=== PATIENT | female | born 1955 | race African-American/Black ===

== ENCOUNTER 2025-03-28 22:26 | Observation (INO) | payer MEDICARE, OTHER ==
[~2025-03-28] VITALS: Ht 177.8 cm; Wt 133.4 kg
[2025-03-28 22:48] VITALS: TEMP 98.9
[2025-03-28 23:06] LABS: BASOPHILS % 0.3 % (0.0-1.0); EOSINOPHILS % 2.1 % (0.0-6.0); LYMPHOCYTES % 32.4 % (18.0-39.1); MONOCYTES % 7.7 % (4.4-11.3); NEUTROPHILS % 57.2 % (38.7-80.0); RED CELL DISTRIBUTION WIDTH 13.9 % (11.7-14.4)
[2025-03-28 23:15] VITALS: RESP 22
[2025-03-28 23:24] LABS: EST GLOMERULAR FILTRATION RATE 92.0 ML/MIN (>=60)
[2025-03-28 23:37] LABS: CORONAVIRUS COVID-19 AG NEGATIVE (NEGATIVE)
[2025-03-28 23:45] VITALS: PULSE 84
[2025-03-29] VITALS (9 sets, daily range): BP systolic 123–150; BP diastolic 80–107; PULSE 61–71; RESP 16–20; TEMP 97.4–98.1; O2SAT 98–100
[2025-03-29] MEDS ORDERED: SODIUM CHLORIDE 0.9% 1000ML 1,000 ML IV SCH (01:00)
[2025-03-29] MEDS: SODIUM CHLORIDE 0.9% 1000ML 1,000 ML IV SCH (02:12)
[2025-03-29] MEDS ORDERED: METOPROLOL TART25 MG PO (02:44)
[2025-03-29] MEDS ORDERED: ATORVASTATIN CA20 MG PO (02:44)
[2025-03-29] MEDS ORDERED: ASPIRIN81 MG PO (02:44)
[2025-03-29] MEDS ORDERED: FUROSEMIDE40 MG PO (02:44)
[2025-03-29] MEDS ORDERED: LOSARTAN POTASS25 MG PO (02:44)
[2025-03-29] MEDS ORDERED: CLOPIDOGREL BISULFATE 75 MG TAB ONE ×2 (12:58→12:59)
[2025-03-29] MEDS ORDERED: DEXTROSE 50% SYRINGE 50 ML IV PRN (13:00)
[2025-03-29] MEDS ORDERED: ALBUTEROL/IPRATROPIUM 3 ML NEB NEB PRN (13:00)
[2025-03-29] MEDS ORDERED: ONDANSETRON HCL INJ 2MG/ML 2ML 2 MG/ML VIAL IV PRN (13:00)
[2025-03-29] MEDS ORDERED: DOCUSATE SODIUM 100 MG CAP PO PRN (13:00)
[2025-03-29] MEDS ORDERED: MELATONIN 5 MG TABLET PO PRN (13:00)
[2025-03-29] MEDS ORDERED: BENZONATATE 100 MG CAP PO PRN (13:00)
[2025-03-29] MEDS ORDERED: HYDRALAZINE HCL 20 MG/ML VIAL IV PRN (13:00)
[2025-03-29] MEDS ORDERED: DIPHENHYDRAMINE HCL 25 MG CAP PO PRN (13:00)
[2025-03-29] MEDS ORDERED: POTASSIUM CHLORIDE 20 MEQ TAB CR PO PRN (13:00)
[2025-03-29] MEDS ORDERED: LIDOCAINE 4% PATCH TP PRN (13:00)
[2025-03-29] MEDS ORDERED: SIMETHICONE 80 MG CHEW PO PRN (13:00)
[2025-03-29] MEDS ORDERED: ACETAMINOPHEN 325 MG TAB PO PRN (13:00)
[2025-03-29] MEDS: CLOPIDOGREL BISULFATE 75 MG TAB PO ONE (13:02)
[2025-03-29] MEDS: ASPIRIN 81 MG ENTERIC COATED PO SCH (13:02)
[2025-03-29] MEDS: METOPROLOL TARTRATE 25 MG TAB PO SCH (13:03)
[2025-03-29] MEDS: ENOXAPARIN SOD INJ 40 MG/0.4 ML SYR SC SCH (16:30)
[2025-03-29] MEDS ORDERED: ATORVASTATIN 20 MG TAB PO SCH (21:00)
[2025-03-30] MEDS ORDERED: PANTOPRAZOLE SOD 40 MG TABEC PO SCH (07:30)
[2025-03-30] MEDS ORDERED: CLOPIDOGREL BISULFATE 75 MG TAB PO SCH (09:00)
== END 2025-03-29 19:44 | disposition home or self-care (01) ==
LOC: ER 22:35 → ERHOLD 03-29 01:22 → MED/SURG2 03-29 02:01
PROVIDERS: ADMIT Internal Medicine; ATTEND Internal Medicine
DX: R07.9 Chest pain, unspecified (principal); R00.2 Palpitations; I11.0 Hypertensive heart disease with heart failure; I50.32 Chronic diastolic (congestive) heart failure; E66.01 Morbid (severe) obesity due to excess calories; Z68.41 Body mass index [BMI] 40.0-44.9, adult; I35.0 Nonrheumatic aortic (valve) stenosis; G47.33 Obstructive sleep apnea (adult) (pediatric); E78.00 Pure hypercholesterolemia, unspecified; Z82.49 Family history of ischemic heart disease and other diseases of the circulatory system; M19.90 Unspecified osteoarthritis, unspecified site
CPT/HCPCS: 36415 ×2; 70450; 71045; 80053; 82550 ×2; 83690; 83880; 84484 ×2; 85025; 87426; 93005; 93306; 94799; 99284; G0378; J1650; J7030